=== PATIENT | male | born 1975 | race Caucasian/White ===

== ENCOUNTER 2018-11-16 06:06 | Day surgery (SDC) | payer OTHER ==
[2018-11-15 16:38] VITALS: BMI 26.9
[2018-11-16] MEDS ORDERED: Fleet Enema 133 ML BOT PR SCH (06:30)
[2018-11-16] MEDS ORDERED: Lidocaine 2% Jelly 5 ML TUBE ONE (06:49)
[2018-11-16] MEDS ORDERED: Bupivacaine/Epinephrine 0.25% 30 ML VIAL ONE (06:49)
[2018-11-16] MEDS ORDERED: Fentanyl 250 MCG/5 ML VIAL ONE (06:56)
[2018-11-16] MEDS ORDERED: Lidocaine 4% Topical Sol 50 ML BOT ONE (06:56)
[2018-11-16] MEDS ORDERED: Sodium Chloride 0.9% 100 ML ONE ×2 (08:12→08:13)
[2018-11-16] MEDS ORDERED: cefOXitin 2 GM VIAL ONE (08:12)
[2018-11-16] MEDS ORDERED: Morphine 2 MG/ML SYRINGE ONE (10:20)
[2018-11-16] MEDS ORDERED: Promethazine HCl 25 MG/ML VIAL ONE (10:21)
[2018-11-16] MEDS ORDERED: Ondansetron PF 4 MG/2 ML Vial ONE (11:02)
[2018-11-16] MEDS ORDERED: PROPOFOL 200 MG/20 ML VIAL ONE (11:02)
[2018-11-16] MEDS ORDERED: Dexamethasone 20 MG/5 ML VIAL ONE (11:02)
[2018-11-16] MEDS ORDERED: Glycopyrrolate 0.2 MG/ML 5 ML SYRINGE ONE (11:02)
[2018-11-16] MEDS ORDERED: Rocuronium Bromide 10 MG/ML (10ML VIAL) ONE (11:02)
--- NOTE | 2018-11-17 13:51 | OP ---
DATE OF PROCEDURE: 11/16/2018 PREOPERATIVE DIAGNOSES: Symptomatic bleeding and prolapsing internal hemorrhoids. POSTOPERATIVE DIAGNOSES: Symptomatic bleeding and prolapsing internal hemorrhoids. OPERATION PERFORMED: PPH stapled hemorrhoidectomy. ANESTHESIA: General endotracheal. INDICATIONS: The patient is a 43-year-old white male. He had undergone prior colonoscopy and continues to have bleeding from his hemorrhoids with prolapse on a daily basis. He is taken to the operative room at this time for stapled hemorrhoidectomy. DESCRIPTION OF OPERATION: Informed consent was obtained, the patient was taken to the operating room, where general endotracheal anesthesia was obtained with the patient in supine position. He was then rolled over into prone sarah-knife position. Buttocks were taped apart and the perianal area was trimmed of hair. Local anesthetic was infiltrated using 0.25% Marcaine with epinephrine in a 4-quadrant intersphincteric fashion. The anal dilator was passed uneventfully and the anal speculum was then placed using 4 interrupted sutures of 2-0 Vicryl. The partial occluding obturator was then utilized to examine the remainder of the anal canal in the rectum. A pursestring suture of 2-0 Prolene was placed several cm proximal to the dentate line. The PPH stapler was obtained and maximally opened. The anvil was passed above the suture line. The pursestring suture was then tied around the post of the stapler. The tails of the suture were withdrawn through the side holes in the stapler. With significant traction on the suture, the stapler was closed such that the stapler was at least 4 cm within the anal canal. The stapler was then fired and removed. The resected specimen was inspected and found to be of appropriate thickness and width. The partial obturator was again utilized to examine the staple line. There was no single dominant area of bleeding. But I did place approximately 4 interrupted sutures of 3-0 Vicryl to repair any minor areas of oozing or any areas of questionable mucosal integrity. After the sutures were placed, the anal speculum was removed. The remainder of the hemorrhoids were inspected and found to have no area of other concerning abnormality. Gel-Foam with lidocaine jelly was then placed internally and dry gauze dress with mesh pants was placed externally. There were no complications. The patient tolerated the procedure well, was taken to recovery room in stable condition. Job ID: [id number]
== END 2018-11-16 12:10 | disposition home or self-care (01) ==
LOC: SDC 06:06
PROVIDERS: ATTEND Specialist
PROC: 06BY4ZC Excision of Hemorrhoidal Plexus, Percutaneous Endoscopic Approach (ICD-10-PCS; principal; 2018-11-16)
DX: K64.8 Other hemorrhoids (principal); I10 Essential (primary) hypertension; F17.200 Nicotine dependence, unspecified, uncomplicated; Z79.899 Other long term (current) drug therapy
CPT/HCPCS: J0694; J2270; J2550; J3010; J3490